=== PATIENT | female | born 1940 | race Caucasian/White ===

== ENCOUNTER 2016-06-05 00:13 | Inpatient (IN) ==
[2016-06-05] MEDS ORDERED: 0.9 % Sodium Chloride 1,000 ML IVC ONE (01:03)
[2016-06-05 01:30] LABS: Basophils % 0.1 %; Eosinophils % 0.1 %; Hematocrit 43.7 % (35.3-44.9); Hemoglobin 14.8 g/dL (11.5-15.4); Immature Granulocytes % 0.5 % (0-4); Lymphocytes # 0.9 K/mcL (0.6-4.6); Lymphocytes % 6.9 %; Mean Corpuscular HGB Conc 33.9 g/dL (31.6-35.5); Mean Corpuscular Hemoglobin 28.8 pg (28.0-33.3); Mean Corpuscular Volume 85.2 fL (83.0-100.0); Mean Platelet Volume 10.6 fL (9.4-12.4); Monocytes # 1.7 K/mcL (0.0-1.3); Monocytes % 13.7 %; Neutrophils # 9.9 K/mcL (1.6-8.9); Platelet Count 342 K/mcL (140-400); Red Blood Count 5.13 M/mcL (3.82-4.97); Red Cell Distribution Width 13.1 % (11.5-14.5); Segmented Neutrophils % 78.7 %
[2016-06-05 01:39] LABS: Prothrombin Time 11.3 Seconds (9.4-12.1)
[2016-06-05 01:42] LABS: Activated Partial Thrombo Time 30.9 Seconds (26.0-36.0)
--- NOTE | 2016-06-05 01:43 | Emergency Department Note ---
Disposition Clinical Impression: Elevated troponin, Abnormal EKG, Elevated serum creatinine, Confusion Leukocytosis Qualifiers: Leukocytosis type: unspecified Qualified Code(s): D72.829 - Elevated white blood cell count, unspecified Disposition: Admitted As Inpatient Condition: Fair Time of Disposition: 02:05 Altered Mental Status HPI - General Chief Complaint: ED Altered Mental Status Stated Complaint: AMS Time Seen by Provider: 06/05/16 00:46 Source: patient, family Mode of arrival: ambulatory Limitations: no limitations Nursing Notes Reviewed: Yes Vital Signs Reviewed: Yes - History of Present Illness HPI Narrative: Patient is a 76-year-old female with past medical history of CVA 2 years ago that has left her with some baseline weakness and confusion. She also has a history of hypertension. She lives alone by herself in [place]. Family went to visit her, according to the patient at that time, she told them that she had fallen out on her front yard, was out there for 3 days. However, when asked today on exam, the patient says that she does not remember being outside and that she has been in her house for the past 3 days. According to family members, a neighbor did find her outside and brought her into her house. They state that she has baseline confusion since stroke but say that her confusion is worsened from baseline. The patient herself denies any chest pain, shortness of breath, nausea, vomiting, fevers, abdominal pain, numbness, tingling, weakness. She is alert and oriented 2. Not oriented to time. Her last known well was approximately 3 days ago. - Related Data Allergies Allergy/AdvReac Type Severity Reaction Status Date / Time No Known Allergies Allergy Verified 06/05/16 00:24 All systems ED: reviewed and negative except as stated. Constitutional: Denies: fever Cardiovascular: Denies: chest pain, palpitations Respiratory: Denies: cough, dyspnea Gastrointestinal: Denies: abdominal pain, nausea, vomiting, diarrhea Genitourinary: Denies: urgency, dysuria, frequency Musculoskeletal: Denies: back pain, neck pain Integumentary: Denies: rash Neurological: Denies: headache, weakness, numbness, paresthesias Psychiatric: Denies: anxiety, depression Endocrine: Denies: fatigue Hematological/Lymphatic: Denies: easy bleeding Past Medical History - Past Medical History Attestation: Yes The following information was validated with the patient. Source: patient, other Medical history: Reports: CVA, hypertension Psychiatric history: Reports: anxiety, depression - Social History Smoking Status: Never smoker Alcohol use: Reports: occasionally Drug use: Reports: none Physical Exam - General Limitations: no limitations General appearance: alert, in no apparent distress, other (pleasantly confused) - Head Head exam: atraumatic, normocephalic, normal inspection - Eye Eye exam: Present: normal appearance, PERRL, EOMI - ENT ENT exam: normal exam, mucous membranes moist - Neck Neck exam: Present: normal inspection, full ROM, trachea midline. Absent: tenderness - Respiratory Respiratory exam: Present: normal lung sounds bilaterally - Cardiovascular Cardiovascular exam: Present: normal rhythm, tachycardia, normal heart sounds - Abdominal Exam Abdominal exam: Present: soft, Non-Tender. Absent: tenderness, distention, guarding, rebound, rigidity - Extremities Exam Extremities exam: Present: normal inspection, full ROM. Absent: tenderness, pedal edema - Neurological Exam Neurological exam: Present: alert, CN II-XII intact, other (See NIH section for full neuro exam. Bilateral LE weakness. No other focal neuro deficit). Absent : oriented X3 (oriented x2) - Psychiatric Psychiatric exam: Present: other (pleasantly confused) - Skin Skin exam: Present: warm, dry, intact, normal color Course Course Narrative: Patient tachycardic. EKG shows ST depression in anterolateral leads. No previous EKG for comparison. Altered mental status workup ordered including CT the head, basic labs, urinalysis. Normal saline was also ordered due to tachycardia. 02:02 Mild leukocytosis, elevated creatinine (fluids already started). Elevated trop - no current CP or dyspnea, aspirin 325 given. CXR shows no acute cardiopulm process. Head CT shows no acute intracranial process but does show old left basal ganglie lacunar infarct. UA and urine drug pending. 03:38 . Negative for UTI. We will admit with the above concerns. Chest X-Ray 06/05/16 00:30 IMPRESSION: 1. Right base subsegmental atelectasis. 2. Otherwise no acute consolidation. 3. Few scattered calcified lung granulomas. 4. Probable hiatal hernia. D/ / Lane Shook MD / Lane Shook MD Interpreting Provider: Lane Shook MD Head CT 06/05/16 00:54 IMPRESSION: 1. No acute intracranial findings. 2. Moderate to severe periventricular subcortical white matter low attenuation that likely represent sequela of chronic small vessel ischemic disease. 3. Old left basal ganglia lacunar infarct. D/ / Lane Shook MD / Lane Shook MD Interpreting Provider: Lane Shook MD Vital Signs Temperature 97.6 F 06/05/16 00:18 Pulse Rate 122 06/05/16 00:18 Respiratory Rate 20 06/05/16 00:18 Blood Pressure 117/70 06/05/16 00:18 O2 Sat by Pulse Oximetry 97 06/05/16 00:18 Temperature 97.6 F 06/05/16 00:18 Pulse Rate 105 06/05/16 04:30 Respiratory Rate 20 06/05/16 05:23 Blood Pressure 152/86 06/05/16 05:23 O2 Sat by Pulse Oximetry 98 06/05/16 04:30 Oxygen Delivery Oxygen Delivery Room Air Altered Mental Status - MDM Narrative Medical decision making narrative: Patient tachycardic. EKG shows ST depression in anterolateral leads. No previous EKG for comparison. Altered mental status workup ordered including CT the head, basic labs, urinalysis. Normal saline was also ordered due to tachycardia. 02:02 Mild leukocytosis, elevated creatinine (fluids already started). Elevated trop - no current CP or dyspnea, aspirin 325 given. CXR shows no acute cardiopulm process. Head CT shows no acute intracranial process but does show old left basal ganglie lacunar infarct. UA and urine drug pending. 03:38 . Negative for UTI. We will admit with the above concerns. - Medical Records Medical records reviewed: Yes I reviewed the patient's medical records. - Lab Data Lab results reviewed: Yes I reviewed the patient's lab results. Result diagrams: 06/05/16 01:19 06/05/16 01:19 Lab Results 06/05/16 06/05/16 06/05/16 Range/Units 00:20 01:19 01:19 WBC 12.6 H (4.3-11.1) K/mcL RBC 5.13 H (3.82-4.97) M/mcL Hgb 14.8 (11.5-15.4) g/dL Hct 43.7 (35.3-44.9) % MCV 85.2 (83.0-100.0) fL MCH 28.8 (28.0-33.3) pg MCHC 33.9 (31.6-35.5) g/dL RDW 13.1 (11.5-14.5) % Plt Count 342 (140-400) K/mcL MPV 10.6 (9.4-12.4) fL Immature Gran % 0.5 (0-4) % Seg Neutrophils % 78.7 % Lymphocytes % 6.9 % Monocytes % 13.7 % Eosinophils % 0.1 % Basophils % 0.1 % Neutrophils # 9.9 H (1.6-8.9) K/mcL Lymphocytes # 0.9 (0.6-4.6) K/mcL Monocytes # 1.7 H (0.0-1.3) K/mcL Eosinophils # 0.0 (0.0-0.6) K/mcL Basophils # 0.0 (0.0-0.2) K/mcL PT 11.3 (9.4-12.1) Seconds INR 1.0 APTT 30.9 (26.0-36.0) Seconds Sodium (136-145) mEq/L Potassium (3.5-4.5) mEq/L Chloride (98-109) mEq/L Carbon Dioxide (19-29) mEq/L BUN (7-20) mg/dL Creatinine (0.57-1.11) mg/dL Est GFR ( Amer) (> 60) Est GFR (Non-Af Amer) (> 60) BUN/Creatinine Ratio (6-26) Glucose (70-99) mg/dL POC Glucose 140 H (58-89) Calculated Osmolality (280-300) Lactic Acid (0.5-2.2) mmol/L Calcium (8.6-10.8) mg/dL Total Bilirubin (0.2-1.2) mg/dL Direct Bilirubin (0.0-0.5) mg/dL Indirect Bilirubin (0.0-1.2) mg/dL AST (5-34) Units/L ALT (0-55) Units/L Alkaline Phosphatase (38-126) Units/L Troponin I (0-0.03) ng/mL Serum Total Protein (6.0-8.3) g/dL Albumin (3.5-5.0) g/dL Globulin (2.4-3.5) g/dL Albumin/Globulin Ratio (1.1-2.2) Urine Color (Yellow) Urine Clarity (Clear) Urine pH (5.0-8.0) pH Units Ur Specific [place] (1.010-1.025) Urine Protein (Neg-Trace) mg/dL Urine Glucose (UA) (Normal) mg/dL Urine Ketones (Negative) mg/dL Urine Blood (Negative) Urine Nitrite (Negative) Urine Bilirubin (Negative) Urine Urobilinogen (Normal) mg/dL Ur Leukocyte Esterase (Negative) Urine Microscopic RBC (0-3) per hpf Urine Microscopic WBC (0-3) per hpf Ur Squamous Epith Cells (None-Few) per lpf Ur Transition Epith Cell (None-Few) per hpf Urine Bacteria (None-Few) per hpf Hyaline Casts (None-Few) per lpf Urine Mucus (Few) Ur Culture Indicated? (NO) Salicylates (15-30) mg/dL Urine Opiates Screen (Medutz=143) ng/mL Acetaminophen (10-30) mcg/mL Ur Barbiturates Screen (Hqlyuj=866) ng/mL Ur Phencyclidine Scrn (Cutoff=25) ng/mL Ur Amphetamines Screen (Kqfjzu=7154) ng/mL U Benzodiazepines Scrn (Uptget=762) ng/mL Urine Cocaine Screen (Cutoff= 300) ng/mL U Marijuana (THC) Screen (Cutoff = 50) ng/mL Ethyl Alcohol (0-10) mg/dL 06/05/16 06/05/16 06/05/16 Range/Units 01:19 01:19 01:19 WBC (4.3-11.1) K/mcL RBC (3.82-4.97) M/mcL Hgb (11.5-15.4) g/dL Hct (35.3-44.9) % MCV (83.0-100.0) fL MCH (28.0-33.3) pg MCHC (31.6-35.5) g/dL RDW (11.5-14.5) % Plt Count (140-400) K/mcL MPV (9.4-12.4) fL Immature Gran % (0-4) % Seg Neutrophils % % Lymphocytes % % Monocytes % % Eosinophils % % Basophils % % Neutrophils # (1.6-8.9) K/mcL Lymphocytes # (0.6-4.6) K/mcL Monocytes # (0.0-1.3) K/mcL Eosinophils # (0.0-0.6) K/mcL Basophils # (0.0-0.2) K/mcL PT (9.4-12.1) Seconds INR APTT (26.0-36.0) Seconds Sodium 140 (136-145) mEq/L Potassium 3.3 L (3.5-4.5) mEq/L Chloride 107 (98-109) mEq/L Carbon Dioxide 19 (19-29) mEq/L BUN 29 H (7-20) mg/dL Creatinine 1.56 H (0.57-1.11) mg/dL Est GFR ( Amer) 39 L (> 60) Est GFR (Non-Af Amer) 32 L (> 60) BUN/Creatinine Ratio 19 (6-26) Glucose 132 H (70-99) mg/dL POC Glucose (58-89) Calculated Osmolality 298 (280-300) Lactic Acid 1.0 (0.5-2.2) mmol/L Calcium 10.2 (8.6-10.8) mg/dL Total Bilirubin 1.2 (0.2-1.2) mg/dL Direct Bilirubin 0.5 (0.0-0.5) mg/dL Indirect Bilirubin 0.7 (0.0-1.2) mg/dL AST 28 (5-34) Units/L ALT 21 (0-55) Units/L Alkaline Phosphatase 66 (38-126) Units/L Troponin I 0.06 H* (0-0.03) ng/mL Serum Total Protein 7.5 (6.0-8.3) g/dL Albumin 4.0 (3.5-5.0) g/dL Globulin 3.5 (2.4-3.5) g/dL Albumin/Globulin Ratio 1.1 (1.1-2.2) Urine Color (Yellow) Urine Clarity (Clear) Urine pH (5.0-8.0) pH Units Ur Specific [place] (1.010-1.025) Urine Protein (Neg-Trace) mg/dL Urine Glucose (UA) (Normal) mg/dL Urine Ketones (Negative) mg/dL Urine Blood (Negative) Urine Nitrite (Negative) Urine Bilirubin (Negative) Urine Urobilinogen (Normal) mg/dL Ur Leukocyte Esterase (Negative) Urine Microscopic RBC (0-3) per hpf Urine Microscopic WBC (0-3) per hpf Ur Squamous Epith Cells (None-Few) per lpf Ur Transition Epith Cell (None-Few) per hpf Urine Bacteria (None-Few) per hpf Hyaline Casts (None-Few) per lpf Urine Mucus (Few) Ur Culture Indicated? (NO) Salicylates (15-30) mg/dL Urine Opiates Screen (Zhxeze=044) ng/mL Acetaminophen (10-30) mcg/mL Ur Barbiturates Screen (Mxfgxf=600) ng/mL Ur Phencyclidine Scrn (Cutoff=25) ng/mL Ur Amphetamines Screen (Bfvbby=7850) ng/mL U Benzodiazepines Scrn (Xdbeck=774) ng/mL Urine Cocaine Screen (Cutoff= 300) ng/mL U Marijuana (THC) Screen (Cutoff = 50) ng/mL Ethyl Alcohol (0-10) mg/dL 06/05/16 06/05/16 06/05/16 Range/Units 01:19 02:36 02:36 WBC (4.3-11.1) K/mcL RBC (3.82-4.97) M/mcL Hgb (11.5-15.4) g/dL Hct (35.3-44.9) % MCV (83.0-100.0) fL MCH (28.0-33.3) pg MCHC (31.6-35.5) g/dL RDW (11.5-14.5) % Plt Count (140-400) K/mcL MPV (9.4-12.4) fL Immature Gran % (0-4) % Seg Neutrophils % % Lymphocytes % % Monocytes % % Eosinophils % % Basophils % % Neutrophils # (1.6-8.9) K/mcL Lymphocytes # (0.6-4.6) K/mcL Monocytes # (0.0-1.3) K/mcL Eosinophils # (0.0-0.6) K/mcL Basophils # (0.0-0.2) K/mcL PT (9.4-12.1) Seconds INR APTT (26.0-36.0) Seconds Sodium (136-145) mEq/L Potassium (3.5-4.5) mEq/L Chloride (98-109) mEq/L Carbon Dioxide (19-29) mEq/L BUN (7-20) mg/dL Creatinine (0.57-1.11) mg/dL Est GFR ( Amer) (> 60) Est GFR (Non-Af Amer) (> 60) BUN/Creatinine Ratio (6-26) Glucose (70-99) mg/dL POC Glucose (58-89) Calculated Osmolality (280-300) Lactic Acid (0.5-2.2) mmol/L Calcium (8.6-10.8) mg/dL Total Bilirubin (0.2-1.2) mg/dL Direct Bilirubin (0.0-0.5) mg/dL Indirect Bilirubin (0.0-1.2) mg/dL AST (5-34) Units/L ALT (0-55) Units/L Alkaline Phosphatase (38-126) Units/L Troponin I (0-0.03) ng/mL Serum Total Protein (6.0-8.3) g/dL Albumin (3.5-5.0) g/dL Globulin (2.4-3.5) g/dL Albumin/Globulin Ratio (1.1-2.2) Urine Color Yellow (Yellow) Urine Clarity Clear (Clear) Urine pH 6.0 (5.0-8.0) pH Units Ur Specific [place] 1.024 (1.010-1.025) Urine Protein 30 H (Neg-Trace) mg/dL Urine Glucose (UA) Normal (Normal) mg/dL Urine Ketones 80 H (Negative) mg/dL Urine Blood Negative (Negative) Urine Nitrite Negative (Negative) Urine Bilirubin Moderate H (Negative) Urine Urobilinogen Normal (Normal) mg/dL Ur Leukocyte Esterase Negative (Negative) Urine Microscopic RBC 3-5 H (0-3) per hpf Urine Microscopic WBC 0-3 (0-3) per hpf Ur Squamous Epith Cells Many H (None-Few) per lpf Ur Transition Epith Cell Few (None-Few) per hpf Urine Bacteria Few (None-Few) per hpf Hyaline Casts Moderate H (None-Few) per lpf Urine Mucus Few (Few) Ur Culture Indicated? NO (NO) Salicylates < 5.0 L (15-30) mg/dL Urine Opiates Screen Negative (Fdqayg=074) ng/mL Acetaminophen < 1.0 L (10-30) mcg/mL Ur Barbiturates Screen Negative (Vticmz=854) ng/mL Ur Phencyclidine Scrn Negative (Cutoff=25) ng/mL Ur Amphetamines Screen Negative (Szrzly=6193) ng/mL U Benzodiazepines Scrn Negative (Jghmox=374) ng/mL Urine Cocaine Screen Negative (Cutoff= 300) ng/mL U Marijuana (THC) Screen Negative (Cutoff = 50) ng/mL Ethyl Alcohol < 10 (0-10) mg/dL - Radiology Data Radiology results reviewed: Yes I reviewed the patient's radiology results. Chest X-Ray 06/05/16 00:30 IMPRESSION: 1. Right base subsegmental atelectasis. 2. Otherwise no acute consolidation. 3. Few scattered calcified lung granulomas. 4. Probable hiatal hernia. D/ / Lane Shook MD / Lane Shook MD Interpreting Provider: Lane Shook MD Head CT 06/05/16 00:54 IMPRESSION: 1. No acute intracranial findings. 2. Moderate to severe periventricular subcortical white matter low attenuation that likely represent sequela of chronic small vessel ischemic disease. 3. Old left basal ganglia lacunar infarct. D/ / Lane Shook MD / Lane Shook MD Interpreting Provider: Lane Shook MD - EKG Data EKG attestation: Yes I reviewed and interpreted this EKG. EKG results narrative: 06/05/2016 at 00:28. Sinus tachycardia. Rate 122. GA interval 147. QRS 92. QTc 367. ST depression of V2, V3, V4. No previous EKG for comparison. TPA Checklist - LKW: 3-4.5 hrs Add. Contraindications Patient/family understanding: The patient/family members have been counseled and understood the risk, benefit , and alternatives of treatment. S.B.AJackR. - S.B.A.[place]zbi[place] Situation: Demographics, MOA Background: Presenting Complaint, Relevant PMH, Meds, & Allergies Assessment: Vital Signs, Course and respsone to treatment, Exam Concerns, Patient/Family Expectation, Pertinant Lab Results, Outstanding Labs Recommendation: Barrier(s) to disposition, Recommendation based on pending studies, treatments, or consults S.B.A.R. Report Given to: Dr. Tabor Attestation Statement - Attestation Attestation: I personally interviewed and examined this patient and my medical decision- making was reviewed with the ED Resident Physician, Dr. Cleveland. I agree with the documented findings, disposition and treatment plan as described except to the extent set forth below. Patient is a 76-year-old white female who is brought here by family members with concerns for worsening confusion and possible fall. Patient suffered a CVA 2 years ago and family reports since that time she has had mild confusion and reportedly went to visit her today in [place] and found her outside, family comments she been outside for an unknown period of time. The clinic found her she reported that she had been out there for 3 days although this is unsubstantiated by anyone else. Family brought her here for medical evaluation. Patient with no complaints on arrival denies any chest pain pressure or heaviness, no shortness of breath, no abdominal pain or flank pain, no nausea vomiting or bowel changes, and no urinary symptoms. Patient with no appreciable focal deficits on examination, speech is clear, patient denies any headaches visual changes, no dizziness or vertigo, no focal weakness or numbness. Agree with documented exam findings. EKG does show some ST depression in the anterolateral leads, unclear if this is new or old as we have no old EKG for comparison. Patient's evaluation shows a mild elevation in her BUN/creatinine, again unclear with no baseline information on the patient whether this is new or chronic. Patient also with elevated troponin. Over serial evaluations patient denies any chest pain pressure or heaviness. CT head was within normal limits. Will admit patient for further evaluation of abnormal EKG and elevated troponin, mild confusion and acute renal insufficiency. Patient has remained hemodynamically stable while in the emergency department and serial neuro exams remain unchanged over time. NIH Stroke Scale - Level of Consciousness LOC: Alert - LOC Questions LOC Questions: Answers one correctly - LOC Commands LOC Commands: Performs both correctly - Best Gaze Best Gaze: Normal - Visual Visual: No visual loss - Facial Palsy Facial Palsy: Normal - Motor Arms Motor Arm-Left: No drift for 10 seconds Motor Arm-Right: No drift for 10 seconds - Motor Legs Motor Leg-Left: Drift, does NOT hit bed Motor Leg-Right: Drift, does NOT hit bed - Limb Ataxia Limb Ataxia: Absent of affected limb too weak to perform exam - Sensory Sensory: Normal - Best Language Best Language: No aphasia - Dysarthria Dysarthria: Normal - Extinction and Inattention Extinction and Inattention: Normal - NIHSS Total Score NIHSS Total Score: 3
[2016-06-05 01:44] LABS: Albumin/Globulin Ratio 1.1 (1.1-2.2); Bilirubin,Direct 0.5 mg/dL (0.0-0.5); Bilirubin,Indirect 0.7 mg/dL (0.0-1.2); Bilirubin,Total 1.2 mg/dL (0.2-1.2); Calcium 10.2 mg/dL (8.6-10.8); Globulin 3.5 g/dL (2.4-3.5); Potassium 3.3 mEq/L (3.5-4.5); Total Protein 7.5 g/dL (6.0-8.3)
[2016-06-05 01:50] LABS: Acetaminophen < 1.0 mcg/mL (10-30); Ethanol < 10 mg/dL (0-10); Salicylate < 5.0 mg/dL (15-30)
[2016-06-05] MEDS ORDERED: Aspirin 325 MG TABLET PO ONE (02:00)
[2016-06-05 03:04] LABS: Bilirubin,Urine Moderate (Negative); Blood,Urine Negative (Negative); Clarity,Urine Clear (Clear); Color,Urine Yellow (Yellow); Glucose,Urine (UA) Normal (Normal); Ketones,Urine 80 mg/dL (Negative); Leukocyte Esterase,Urine Negative (Negative); Nitrite,Urine Negative (Negative); Protein,Urine 30 mg/dL (Neg-Trace); Specific Gravity,Urine 1.024 (1.010-1.025); Urobilinogen,Urine Normal (Normal)
[2016-06-05 03:07] LABS: Squamous Epithelial Cell,Urine Many per lpf (None-Few); WBC,Urine 0-3 per hpf (0-3)
[2016-06-05 03:08] LABS: Amphetamine Screen,Urine Negative ng/mL (Cutoff=1000); Barbiturate Screen,Urine Negative ng/mL (Cutoff=200); Benzodiazepines Screen,Urine Negative ng/mL (Cutoff=200); Cannabinoid Screen,Urine Negative ng/mL (Cutoff = 50); Cocaine Screen,Urine Negative ng/mL (Cutoff= 300); Opiate Screen,Urine Negative ng/mL (Cutoff=300); Phencyclidine Screen,Urine Negative ng/mL (Cutoff=25)
[2016-06-05 03:20] LABS: Hyaline Casts,Urine Moderate per lpf (None-Few); Mucus,Urine Few (Few); Transitional Epi Cells,Urine Few per hpf (None-Few)
[2016-06-05 03:21] LABS: Bacteria,Urine Few per hpf (None-Few)
--- NOTE | 2016-06-05 05:01 | Internal Med History&Physical ---
<Umm Jolley - Last Filed: 06/05/16 06:34> Date of Encounter: 06/05/16 Time of Encounter: 04:30 Assessment and Plan (1) Acute encephalopathy Current visit: Yes Status: Acute - Likely secondary to dehydration and/or electrolyte imbalance in the setting of baseline residual confusion from prior stroke. - CT head found no acute intracranial abnormality. - UA and UDS are unremarkable. - Continue IV NS - Continue to monitor mental status along with renal function and electrolytes. (2) Elevated troponin Current visit: Yes Status: Acute - Elevated troponin at 0.06. - NSTEMI vs. troponin leakage which can be from tachycardia from dehydration in the setting of JAYA or CKD. - Continue to trend troponin q6H x2. - May consider cardiology consult if it continues to elevate. - Will check lipid panel, Hgb A1C, TSH. - Continue aspirin and start statin and beta carlene. (3) Abnormal EKG Current visit: Yes Status: Acute - EKG showed ST depression noted on anterolateral leads. - New ischemia vs. old EKG findings (given we don't have prior EKG). - Will obtain prior EKG from [facility]. - Continue to monitor with telemetry. (4) Elevated serum creatinine Current visit: Yes Status: Acute - SCr 1.56. - Can be JAYA secondary to dehydration or CKD (since we don't have baseline). - Will obtain medical records from [facility] regarding her renal function in the past. - Continue IV NS. - Avoid nephrotoxin. - Continue to monitor renal function and electrolytes. (5) Leukocytosis Current visit: Yes Status: Acute - WBC 12.6 on admission. - Likely stress response to current illness. Doubt underlying infection given negative UA and CXR. - Continue to monitor. Qualifiers: Leukocytosis type: unspecified Qualified Code(s): D72.829 - Elevated white blood cell count, unspecified (6) Hypokalemia Current visit: Yes Status: Acute - K at 3.3 - Will check Mg. - Will give potassium supplement (20 meq IV, 20 meq PO). - continue to monitor. (7) DVT prophylaxis Current visit: Yes Status: Acute - SQ heparin. Internal Medicine - H&P: HPI Chief complaint: Altered mental status Admitted From: Emergency Dept Plans for Post Hospital Care: Home History of present illness: Ms. 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 Patient was brought here by her family for worsening altered mental status. On the encounter, patient is hypersomnolent and oriented to self and part of place ("hospital") but not a good historian. Given no family member at bedside on my encounter, much of history was obtained from reviewing medical records, mainly the ED noted. Per ED note, patient lives alone by herself in [place]. When family visit her earlier, patient at that time reported she had fallen out on her front yard , was out there for 3 days. According to family members, a neighbor did find her outside and brought her into her house but didn't know how long she was outside. Family reported that patient has altered mental status worsen than her baseline confusion since the stroke. Patient herself denies chest pain, abdominal pain, dyspnea, fever, chills, nausea, vomiting, diarrhea. I called patient's son James Arora and he does not know exactly what happened in [place]. But he states that patient's baseline is orient to person, place and part of time (mostly month) and patient's confusion today is definitely worse than before. Patient's son also recalled that patient had been hospitalized at [facility] in [facility] in the past. Past Med Surg Social Fam HX - Past Medical History Medical history: CVA, hypertension Psychiatric history: anxiety, depression - Social History Smoking Status: Never smoker Alcohol use: occasionally Drug use: none Internal Medicine - H&P: Meds Allergies No Known Allergies Allergy (Verified 06/05/16 00:24) ROS unobtainable: due to mental status All Systems PM: A 10-system review of systems was performed and is negative for pertinent findings except as documented above in the HPI. - Constitutional Vitals: Temp Pulse Resp BP Pulse Ox 97.6 F 105 20 134/83 98 06/05/16 00:18 06/05/16 04:30 06/05/16 04:30 06/05/16 04:30 06/05/16 04:30 General appearance: Present: A&O X 2 (Milam to her name and part of place ( "hospital")), no acute distress. Absent: answers questions appropriately - Head Head exam: Present: atraumatic, normocephalic - Eye Eye exam: Present: EOMI, conjuntiva pink, sclera anicteric - Neck Neck exam general surgery: Present: supple, trachea midline. Absent: lymphadenopathy - Respiratory Respiratory exam: Present: CTAB. Absent: accessory muscle use, rales, rhonchi, wheezes - Cardiovascular Cardiovascular exam: Present: +S1, +S2, tachycardia. Absent: diastolic murmur, gallop, rubs, systolic murmur - GI/Abdominal GI/Abdominal exam: Present: normal bowel sounds, soft, no peritoneal signs. Absent: distended, tenderness - Extremities Exam Extremities exam: Present: warm, radial pulses palpable and symetrical. Absent : calf tenderness, cyanotic, pedal edema - Neurological Exam Neurological exam: Absent: pronater drift, facial droop, speech deficit Additional comments: Unable to fully assess given patient is not following commands nor answering questions appropriately. - Skin Skin exam: Present: dry, intact, warm Internal Med - H&P Results - Labs CBC & Chem 7: 06/05/16 01:19 06/05/16 01:19 <Manolo Tabor - Last Filed: 06/05/16 08:25> Date of Encounter: 06/05/16 Internal Medicine - H&P: HPI History of present illness: Ms. Arora is a 76 year old female All Systems PM: A 10-system review of systems was performed and is negative for pertinent findings except as documented above in the HPI. - Constitutional Vitals: Temp Pulse Resp BP Pulse Ox 98.3 F 93 18 148/84 94 06/05/16 07:34 06/05/16 07:34 06/05/16 07:34 06/05/16 07:34 06/05/16 07:34 Internal Med - H&P Results - Labs CBC & Chem 7: 06/05/16 01:19 06/05/16 01:19 Labs: Cardiac Enzymes 06/05/16 Range/Units 06:31 Troponin I 0.05 H* (0-0.03) ng/mL - Attending Attestation I performed history and physical examination of the patient and discussed management with resident/Cop[employer] Printer Field Technician. I reviewed the resident/ Interns note and agree with the documented findings and plan of care. 76 year old female with h/o HTN and CVA 2 years ago with residual weakness and confusion. Patient was brought here by her family for worsening altered mental status. Not able to review Past medical, social or family history with the pt. O /E: Confused. Cardiac; RRR. Able to move the extremities. CT head reports no acute intracranial abnormalities. Chest x-ray shows no consolidation. Labs reviewed: WBC 12.6, serum sodium 140, potassium 4.3, creatinine 1.56 and troponin 0.06. CK: 258. A/P: Acute encephalopathy: No obvious source of infection sofar. Will check TSH. Consider Neurology consult. Mild elevation of troponin consider cardiology consult.
[2016-06-05] MEDS ORDERED: Acetaminophen 325 MG TABLET PO PRN (05:02)
[2016-06-05 06:27] LABS: Chol/HDL Ratio 6.2 (0-4.9); Cholesterol 268 mg/dL (< 200); Creatine Kinase 258 Units/L (29-168); HDL Cholesterol 43 mg/dL (40-59); LDL Cholesterol,Calculated 195 mg/dL (0-99); Magnesium 1.8 mg/dL (1.6-2.6); Phosphorous 3.4 mg/dL (2.3-4.7); Triglycerides 149 mg/dL (< 150)
[2016-06-05 06:47] LABS: Thyroid Stimulating Hormone 2.157 mcIU/mL (0.350-4.840)
[2016-06-05] MEDS: 0.9 % Sodium Chloride 1,000 ML IVC SCH ×2 (07:26→15:29)
[2016-06-05] MEDS: *HR* Heparin 5,000 UNIT/ML VIAL SQ SCH ×3 (07:28→20:44)
[2016-06-05] MEDS: Aspirin 81 MG TAB.CHEW PO SCH (08:31)
--- NOTE | 2016-06-05 08:45 | Neurology - Consult Note ---
Date of Encounter: 06/05/16 Time of Encounter: 08:45 Assessment and Plan (1) Change in mental status Current Visit: Yes Status: Acute spoke to patient's son over the phone, he states that her current mental status is somewhat worse than her usual, she does have possible baseline dementia and it has been worse since her last stroke two yrs ago, currently she does not have focal neurological deficit to suggest acute CVA, but she does have hx of stroke and not on any home meds at this time, CT scan of the head without contrast showed moderate to severe periventricular subcortical white matter low attenuation which likely represent sequela of chronic small vessel ischemic disease and old left basal ganglia lacunar infarct, lab and UA shows dehydration picture, clinically does not look infectious, currently she is on IV hydration, her change in mental status could be coming from dehydration, currently she is on ASA and statin, if no improvement in her mental status after fluid hydration, then might obtain brain MRI but acute cva is low in differential diagnosis. Qualifiers: Qualified Code(s): R41.82 - Altered mental status, unspecified History of Present Illness Chief complaint: Change in mental status HPI: Ms. Arora is a 76 year old female with a history of hypertension and stroke, patient was brought from [facility] to the ER by her son last night for change in mental status, patient has a baseline confusion from previous stroke 2 years ago, she is supposed to be on home medications but she does not take anything currently, patient stays at [facility] with her boyfriend and occasionally with her son in [place], apparently there was no one at the house for several days and the neighbor found her laying in the yard, her patient's family member was notified and her son brought from her to the ER, patient is a poor historian, A and O 2, not oriented to time, patient states that she was laying in the yard for at least two days, she was not able to get up by herself due to weakness of her legs, patient denies loss of consciousness or hitting her head, unclear how she fell, possible mechanical, CT scan of the head without contrast showed moderate to severe periventricular subcortical white matter low attenuation which likely represent sequela of chronic small vessel ischemic disease and old left basal ganglia llacunar infarct, patient denies slurred speech and weakness/tingling/numbness of upper extremities, patient does admit chronic lower extremity weakness and she uses a cane daily but denies tingling/numbness of lower extremities or urinary/bowel incontinence. Past Med Surg Social Fam HX - Past Medical History Medical history: CVA, hypertension Psychiatric history: anxiety, depression - Past Surgical History Surgical History: other (unknown) - Social History Smoking Status: Never smoker Alcohol use: occasionally Drug use: none - Family History Mother History Unknown: Yes Father History Unknown: Yes Medications and Allergies Allergies No Known Allergies Allergy (Verified 06/05/16 00:24) ROS unobtainable: due to mental status (limited) All Systems: A 10-system review of systems was performed and is negative for pertinent findings except as documented above in the HPI. Review of Systems: Patient denies headache, fever/chill, neck pain, facial droop, slurred speech and weakness/tingling/numbness of upper extremities, patient does admit chronic lower extremity weakness and she uses a cane daily but denies tingling/numbness of lower extremities or urinary/bowel incontinence. Physical Examination - Vital Signs Vital Signs: Initial Vital Signs Temp Pulse Resp BP Pulse Ox 97.6 F 122 20 117/70 97 06/05/16 00:18 06/05/16 00:18 06/05/16 00:18 06/05/16 00:18 06/05/16 00:18 - Constitutional General appearance: comfortable - Neurologic Sensorimotor examination: intact Detailed motor examination: grossly full strength in all extremities, full strength in all major muscle groups Motor examination - right side: 5/5: deltoids, biceps, triceps, wrist flexion, wrist extension, bitumen plant operator, hip flexors, quadriceps, plantarflexion Motor examination - left side: 5/5: deltoids, biceps, triceps, wrist flexion, wrist extension, hip flexors, bitumen plant operator, quadriceps, plantarflexion Detailed sensory examination: intact Reflex and gait examination: intact Reflexes: Biceps: 2+, Triceps: 2+, Brachioradialis: 2+, Patella: 2+, Achilles: 2 + Mental Status Examination: awake, alert, oriented to person, oriented to place, follows commands appropriately, answers questions appropriately, no agnosia, no aphasia, no aproxia Cranial nerve examination: PERRL, EOMI, visual cuevas intact, sensory to face intact, mastication intact, no facial asymmetry is present, no dysarthria, hearing is intact symmetrically, soft palate elevates bilaterally upon phonation , tongue protrudes midline, no atrophy or facial fasiculations present Cerebellar examination: no dysmetria, performs finger to nose and heel to romano symmetrically without ataxia, no truncal ataxia, no difficulty with rapid alternating movements Results - Laboratory Findings CBC and BMP: 06/05/16 01:19 06/05/16 01:19 Abnormal lab findings: Abnormal lab results WBC 12.6 K/mcL (4.3-11.1) H 06/05/16 01:19 RBC 5.13 M/mcL (3.82-4.97) H 06/05/16 01:19 Neutrophils # 9.9 K/mcL (1.6-8.9) H 06/05/16 01:19 Monocytes # 1.7 K/mcL (0.0-1.3) H 06/05/16 01:19 Potassium 3.3 mEq/L (3.5-4.5) L 06/05/16 01:19 BUN 29 mg/dL (7-20) H 06/05/16 01:19 Creatinine 1.56 mg/dL (0.57-1.11) H 06/05/16 01:19 Est GFR ( Amer) 39 (> 60) L 06/05/16 01:19 Est GFR (Non-Af Amer) 32 (> 60) L 06/05/16 01:19 Glucose 132 mg/dL (70-99) H 06/05/16 01:19 POC Glucose 140 (58-89) H 06/05/16 00:20 Creatine Kinase 258 Units/L (29-168) H 06/05/16 01:19 Troponin I 0.05 ng/mL (0-0.03) H* 06/05/16 06:31 Cholesterol 268 mg/dL (< 200) H 06/05/16 01:19 LDL Cholesterol, Calc 195 mg/dL (0-99) H 06/05/16 01:19 Cholesterol/HDL Ratio 6.2 (0-4.9) H 06/05/16 01:19 Urine Protein 30 mg/dL (Neg-Trace) H 06/05/16 02:36 Urine Ketones 80 mg/dL (Negative) H 06/05/16 02:36 Urine Bilirubin Moderate (Negative) H 06/05/16 02:36 Urine Microscopic RBC 3-5 per hpf (0-3) H 06/05/16 02:36 Ur Squamous Epith Cells Many per lpf (None-Few) H 06/05/16 02:36 Hyaline Casts Moderate per lpf (None-Few) H 06/05/16 02:36 Salicylates < 5.0 mg/dL (15-30) L 06/05/16 01:19 Acetaminophen < 1.0 mcg/mL (10-30) L 06/05/16 01:19 Consult Discharge Plan - Plan Referrals: NO,PCP [Primary Care Provider] -
--- NOTE | 2016-06-05 10:15 | Internal Med Progress Note ---
Date of Encounter: 06/05/16 Time of Encounter: 10:11 - Assessment and plan (1) Acute encephalopathy Current Visit: Yes Status: Acute Assessment and plan: Acute encephalopathy on top dementia Per family, patient is not at baseline CT scan of the head without contrast showed moderate to severe periventricular subcortical white matter low attenuation which likely represent sequela of chronic small vessel ischemic disease and old left basal ganglia lacunar infarct Work up revealed ketonuria, proteinuria, possible JAYA and leukocytosis evidence of dehydration Patient's AMS may possibly be from her metabolic abnormalities Continue IVF hydration Agree with neurology consultation and Brain MRI Fall risk, fall precautions Close monitoring (2) Dehydration Current Visit: Yes Status: Acute Assessment and plan: Continue IVF hydration Obtain renal USS to assess for chronicity Phosphate is WNL , patient's urine is concentrated and with ketones, most likely patient has JAYA due to dehydration and wandering with poor oral intake Check uric acid Avoid nephrotoxins (3) Renal insufficiency Current Visit: Yes Status: Acute Assessment and plan: As above Follow renal USS, monitor Chem, avoid nephrotoxins (4) Elevated troponin Current Visit: Yes Status: Acute Assessment and plan: Patient denies chest pain, however, she is confused and oriented X2 only EKG with ST depression in anterolateral leads, LVH and sinus tachycardia Troponin 0.06-0.05, possibly due to JAYA and demand ischemia from tachycardia Will keep patient on tele Continue metoprolol, give IV if patient is refusing oral meds Obtain ECHO to assess WMA (5) Leukocytosis Current Visit: Yes Status: Acute Assessment and plan: Possibly from dehydration and acute illness NO current source of infection, patient has no wounds, UA is unremarkable, patient has no fever, CXR is clear, will continue to monitor Qualifiers: Leukocytosis type: unspecified Qualified Code(s): D72.829 - Elevated white blood cell count, unspecified (6) Hypokalemia Current Visit: Yes Status: Acute Assessment and plan: Replaced, monitor (7) Abnormal EKG Current Visit: Yes Status: Acute Assessment and plan: Obtain previous EKGs Keep on tele - Subjective Interval history: Initial encounter 76 Y/O F with PMH of HTN, CVA Admitted for acute encephalopathy, JAYA, Leukocytosis Per EMR, she was found wandering and brought in by family She remains confused at time of evaluation She reports to me "I was in the graveyard for 3 days, she also [place], she also reports she lives with her son". all of this information when verified by RN is not true She denies any current complains, and states she has no medical problems, however, EMR revealed a history of CVA, as well as vascular dementia There is no family at bedside at time of review - Constitutional Vitals: Temp Pulse Resp BP Pulse Ox 98.3 F 93 18 148/84 94 06/05/16 07:34 06/05/16 07:34 06/05/16 07:34 06/05/16 07:34 06/05/16 07:34 General appearance: Present: no acute distress. Absent: answers questions appropriately Exam: VSS Gen appearance: looks disheveled, unkempt, reeking of urine pleasantly confused Neuro: Alert, awake, disoriented to time, oriented to place and person, no speech deficits, moves all limbs spontaneously, no facial paralysis HEENT: Dry oral mucosa, no cyanosis, not pale, sclera anicteric Chest: No scar, Chest is clear to auscultation bilaterally Heart: S1, S2 only, no m/g/r Abdomen: Soft, not tender, bowel sounds are present, no palpably enlarged organs Extremities: No pedal edema, lots of dirt inbetween fingers and toes, no ulcers/ wounds noted Skin: Dry Internal Medicine: Result - Labs CBC & Chem 7: 06/05/16 01:19 06/05/16 01:19 Labs: Cardiac Enzymes 06/05/16 Range/Units 06:31 Troponin I 0.05 H* (0-0.03) ng/mL - ABG Interpretation ABG results: PT/INR, D-dimer PT 11.3 Seconds (9.4-12.1) 06/05/16 01:19 Consult Discharge Plan - Plan Referrals: NO,PCP [Primary Care Provider] -
[2016-06-05] MEDS ORDERED: *HR* Metoprolol 5 MG/5 ML VIAL IVP PRN (12:22)
--- NOTE | 2016-06-05 12:27 | Electrocardiograph Report ---
[place] [id number] Test Date: 2016-06-05 Pat Name: Anna Arora Department: 102 Room: 2A12 Gender: F Medical Device Engineer: : [id number] Requested By: Lea Guzmán Order Number: [id number] Reading MD: Theodore Hodges MD Measurements Intervals Cornish Rate: 122 P: 49 MD: 147 QRS: -3 QRSD: 92 T: 153 QT: 294 QTc: 367 Interpretive Statements SINUS TACHYCARDIA LEFT VENTRICULAR HYPERTROPHY AND ST-T CHANGE Electronically Signed On 06-05-2016 12:25:40 EDT by Theodore Hodges MD
[2016-06-06 04:46] LABS: Basophils % 0.5 %; Eosinophils # 0.1 K/mcL (0.0-0.6); Eosinophils % 2.2 %; Hematocrit 31.2 % (35.3-44.9); Immature Granulocytes % 0.2 % (0-4); Lymphocytes # 2.6 K/mcL (0.6-4.6); Lymphocytes % 40.9 %; Mean Corpuscular Hemoglobin 28.9 pg (28.0-33.3); Mean Corpuscular Volume 87.4 fL (83.0-100.0); Monocytes # 0.7 K/mcL (0.0-1.3); Monocytes % 11.3 %; Neutrophils # 2.9 K/mcL (1.6-8.9); Platelet Count 229 K/mcL (140-400); Red Blood Count 3.57 M/mcL (3.82-4.97); Red Cell Distribution Width 13.3 % (11.5-14.5); Segmented Neutrophils % 44.9 %
[2016-06-06 04:59] LABS: BUN/Creatinine Ratio 45 (6-26); Blood Urea Nitrogen 30 mg/dL (7-20); Carbon Dioxide 24 mEq/L (19-29); Chloride 113 mEq/L (98-109); Glucose 104 mg/dL (70-99); Osmolality,Calculated 296 (280-300); Potassium 3.1 mEq/L (3.5-4.5); Sodium 140 mEq/L (136-145); eGFR For African Americans > 60 (> 60); eGFR For Non-African Americans > 60 (> 60)
[2016-06-06 05:00] LABS: Calcium 8.3 mg/dL (8.6-10.8)
[2016-06-06 05:11] LABS: Hemoglobin 10.3 g/dL (11.5-15.4)
[2016-06-06] MEDS: *HR* Heparin 5,000 UNIT/ML VIAL SQ SCH ×3 (05:58→21:56)
[2016-06-06] MEDS: 0.9 % Sodium Chloride 1,000 ML IVC SCH (05:59)
[2016-06-06] MEDS: Aspirin 81 MG TAB.CHEW PO SCH (09:37)
--- NOTE | 2016-06-06 11:51 | Internal Med Progress Note ---
Date of Encounter: 06/06/16 Time of Encounter: 11:49 - Assessment and plan (1) Acute encephalopathy Current Visit: Yes Status: Acute Assessment and plan: Acute encephalopathy on top of underlying dementia Patient is improved and now at her baseline CT scan of the head without contrast showed moderate to severe periventricular subcortical white matter low attenuation which likely represent sequela of chronic small vessel ischemic disease and old left basal ganglia lacunar infarct Brain MRI is unremarkable for acute events Her encephalopathy is possibly metabolic from dehydration and JAYA She has made improvement PT/OT review noted. D/C recommendation is for SNF (2) Dehydration Current Visit: Yes Status: Acute Assessment and plan: Improved D/C IVF, encourage liberal fluid intake (3) Elevated troponin Current Visit: Yes Status: Acute Assessment and plan: Patient denies chest pain on admission EKG with ST depression in anterolateral leads, LVH and sinus tachycardia Troponin 0.06-0.05, possibly due to JAYA and demand ischemia from tachycardia Follow ECHO report Troponinemia has resolved (4) Leukocytosis Current Visit: Yes Status: Acute Assessment and plan: Resolved Possibly from dehydration and acute illness NO current source of infection, patient has no wounds, UA is unremarkable, patient has no fever, CXR is clear, will continue to monitor Qualifiers: Leukocytosis type: unspecified Qualified Code(s): D72.829 - Elevated white blood cell count, unspecified (5) Hypokalemia Current Visit: Yes Status: Acute Assessment and plan: Replaced, monitor (6) Abnormal EKG Current Visit: Yes Status: Acute Assessment and plan: ST depression in anterolateral leads insignificant, patint without chest pain no tele findings Keep on tele for now (7) JAYA (acute kidney injury) Current Visit: Yes Status: Acute Assessment and plan: Pre-renal, non-oliguric Possibility of post-renal component with urinary retention Cr has improved Started on tamsulosin Encourage liberal fluid intake Avoid nephrotoxins - Subjective Interval history: 76 Y/O F with PMH of HTN, CVA, Dementia Admitted for acute encephalopathy, JAYA, Leukocytosis Seen at bedside with family Today, she is more alert and able to make meaningful conversation She is still a little confused however as she doesn't remember how she got to the [place] She reports living by her sefl with her son there "all the time" Her family disagrees She denies new symptoms, JAYA has resolved, Brain MRI is negative - Constitutional Vitals: Temp Pulse Resp BP Pulse Ox 98.0 F 79 18 123/72 96 06/06/16 10:53 06/06/16 10:53 06/06/16 10:53 06/06/16 10:53 06/06/16 10:53 General appearance: Present: A&O X 2, pleasant, no acute distress. Absent: answers questions appropriately - Head Head exam: Present: atraumatic, normocephalic - Eye Eye exam: Present: PERRL, conjuntiva pink, sclera anicteric Pupils: Present: PERRL - Neck Neck exam general surgery: Present: supple, trachea midline. Absent: lymphadenopathy - Respiratory Respiratory exam: Present: CTAB. Absent: accessory muscle use, rales, rhonchi, wheezes - Cardiovascular Cardiovascular exam: Present: RRR, +S1, +S2. Absent: diastolic murmur, gallop, rubs, systolic murmur - GI/Abdominal GI/Abdominal exam: Present: normal bowel sounds, soft, no peritoneal signs. Absent: distended, tenderness - Extremities Exam Extremities exam: Present: warm, radial pulses palpable and symetrical. Absent : calf tenderness, cyanotic, pedal edema - Neurological Exam Neurological exam: Present: alert, CN II-XII intact, no focal deficits. Absent : oriented X3, pronater drift, facial droop, speech deficit - Skin Skin exam: Present: dry, intact Internal Medicine: Result - Labs CBC & Chem 7: 06/06/16 04:11 06/06/16 04:11 Labs: Short CBC 06/06/16 Range/Units 04:11 WBC 6.4 (4.3-11.1) K/mcL Hgb 10.3 L D (11.5-15.4) g/dL Hct 31.2 L (35.3-44.9) % Plt Count 229 (140-400) K/mcL Neutrophils # 2.9 (1.6-8.9) K/mcL BMP 06/06/16 04:11 Sodium 140 Potassium 3.1 L Chloride 113 H Carbon Dioxide 24 BUN 30 H Creatinine 0.67 D Glucose 104 H Calcium 8.3 L D Cardiac Enzymes 06/05/16 Range/Units 12:50 Troponin I 0.03 (0-0.03) ng/mL - ABG Interpretation ABG results: PT/INR, D-dimer PT 11.3 Seconds (9.4-12.1) 06/05/16 01:19 - Impressions Impressions Retroperitoneum Ultrasound 06/05/16 18:00 IMPRESSION: 1. Mild left hydronephrosis. 2. No right hydronephrosis. 3. Small residual postvoid bladder volume of 120 cc. D/ / Lane Shook MD / Lane Shook MD Interpreting Provider: Lane Shook MD Consult Discharge Plan - Plan Referrals: NO,PCP [Primary Care Provider] -
--- NOTE | 2016-06-06 11:55 | Neurology Progress Note ---
Date of Encounter: 06/06/16 Time of Encounter: 11:54 Assessment and Plan (1) Acute encephalopathy Current Visit: Yes Status: Acute Likely secondary to JAYA and other medical conditions. Rapidly improved and her medical conditions improve. MRI of brain showed no acute infarct or other intracranial abnormalities. No evidence of primary OIL DEVELOPER pathology. patient currently oriented and alert and shows no significant cognitive impairment. Will recommend no further testing from neurological perspective. will sign off at this time. Please call if any questions Subjective Principal diagnosis: altered mental status Interval history: Patient seen and examined. Feeling better and is eating in bed, comfortably. No discomforts reported. MRI of brain completed and showed no acute intracranial abnormality. No focal weakness. No cranial nerve deficits. Speech at baseline Objective - Constitutional Vitals: Temp Pulse Resp BP Pulse Ox 98.0 F 79 18 123/72 96 06/06/16 10:53 06/06/16 10:53 06/06/16 10:53 06/06/16 10:53 06/06/16 10:53 - Neurological Exam Sensorimotor examination: Present: intact Motor Examination: Present: grossly full strength in all extremities, full strength in all major muscle groups Motor examination - right side: 5/5: deltoids, biceps, triceps, wrist flexion, wrist extension, cotton bag sewer, hip flexors, tibialis Anterior, quadriceps, toe extension (EHL), plantarflexion Motor examination - left side: 5/5: deltoids, biceps, triceps, wrist flexion, wrist extension, hip flexors, cotton bag sewer, quadriceps, plantarflexion Sensation intact: Present: intact Reflex and gait examination: intact Mental Status Examination: Present: awake, alert, oriented to person, oriented to place, follows commands appropriately, answers questions appropriately, no agnosia, no aphasia, no aproxia Cranial nerve examination: Present: PERRL, EOMI, visual cuevas intact, sensory to face intact, mastication intact, no facial asymmetry is present, no dysarthria, hearing is intact symmetrically, soft palate elevates bilaterally upon phonation, tongue protrudes midline, no atrophy or facial fasiculations present Cerebellar examination: Present: no dysmetria, performs finger to nose and heel to romano symmetrically without ataxia, no truncal ataxia, no difficulty with rapid alternating movements Results - Laboratory Findings CBC and BMP: 06/06/16 04:11 06/06/16 04:11 Abnormal lab findings: Abnormal lab results RBC 3.57 M/mcL (3.82-4.97) L 06/06/16 04:11 Hgb 10.3 g/dL (11.5-15.4) L D 06/06/16 04:11 Hct 31.2 % (35.3-44.9) L 06/06/16 04:11 Potassium 3.1 mEq/L (3.5-4.5) L 06/06/16 04:11 Chloride 113 mEq/L (98-109) H 06/06/16 04:11 BUN 30 mg/dL (7-20) H 06/06/16 04:11 BUN/Creatinine Ratio 45 (6-26) H 06/06/16 04:11 Glucose 104 mg/dL (70-99) H 06/06/16 04:11 POC Glucose 140 (58-89) H 06/05/16 00:20 Uric Acid 10.0 mg/dL (2.6-6.0) H 06/05/16 06:31 Calcium 8.3 mg/dL (8.6-10.8) L D 06/06/16 04:11 Creatine Kinase 258 Units/L (29-168) H 06/05/16 01:19 Cholesterol 268 mg/dL (< 200) H 06/05/16 01:19 LDL Cholesterol, Calc 195 mg/dL (0-99) H 06/05/16 01:19 Cholesterol/HDL Ratio 6.2 (0-4.9) H 06/05/16 01:19 Urine Protein 30 mg/dL (Neg-Trace) H 06/05/16 02:36 Urine Ketones 80 mg/dL (Negative) H 06/05/16 02:36 Urine Bilirubin Moderate (Negative) H 06/05/16 02:36 Urine Microscopic RBC 3-5 per hpf (0-3) H 06/05/16 02:36 Ur Squamous Epith Cells Many per lpf (None-Few) H 06/05/16 02:36 Hyaline Casts Moderate per lpf (None-Few) H 06/05/16 02:36 Salicylates < 5.0 mg/dL (15-30) L 06/05/16 01:19 Acetaminophen < 1.0 mcg/mL (10-30) L 06/05/16 01:19 Consult Discharge Plan - Plan Referrals: NO,PCP [Primary Care Provider] -
--- NOTE | 2016-06-06 12:00 | ECHO - Doppler Report ---
Echocardiogram Name: Anna Arora Date of Study: 06/06/2016 Date: 1940 Ht: 64.0 in Medical Record#: [id number] Age: 76 Wt: 155.0 lb Gender: Female BSA: 1.76 Order #: [id number] Location: [facility] Room #: 2A12 Reading Physician: Bronson Crook MD, [facility] Health Management Consultant: Amna Taylor Ordering Physician: Mesfin Keller MD Primary Physician: None Indications: Abnormal EKG, Troponin leak Impressions: Normal LV systolic function, LVEF 65%. Mild left ventricular diastolic dysfunction. Normal right ventricular size and function. No significant valvular dysfunction. Unable to estimate RVSP due to lack of TR jet. Left Ventricular Wall Motion: Rest Echo Findings All wall segments showed normal motion. Findings: Study Quality * Suboptimal echo windows. ECG Findings * Normal sinus rhythm. Left Ventricle * Normal LV systolic function, LVEF 65%. * Normal LV chamber size and wall thickness. * Mild left ventricular diastolic dysfunction. Right Ventricle * Normal right ventricular size and function. Left Atrium * Normal left atrial size. Right Atrium * Normal right atrial size. Aorta * Normally sized aortic root. Pericardium * There is no pericardial effusion present. IVC * Normal IVC dimensions and inspiratory collapse. Aortic Valve * Aortic valve not well visualized. * No aortic stenosis. * No aortic regurgitation. Mitral Valve * Mild mitral annular calcification * No mitral stenosis. * Trace mitral regurgitation. Tricuspid Valve * Tricuspid valve not well visualized. * No tricuspid stenosis. * Trace tricuspid regurgitation. * Unable to estimate RVSP due to lack of TR jet. Pulmonic Valve * Pulmonic valve not well visualized. * No pulmonic stenosis. * No pulmonic regurgitation. Measurements: BP: 122/ 63 2D Normal Values RVIDd: 2.50 cm IVSd: 1.00 cm 0.6 - 1.0 cm LVIDd: 3.90 cm 3.7 - 5.6 cm LVPWd: 1.00 cm 0.6 - 1.1 cm LVIDs: 2.40 cm 1.5 - 3.6 cm AO: 3.00 cm < 4.0 cm LA volume: 32 Mitral Valve Peak E:.74 m/sec Peak A:.96 m/sec E/A Ratio:0.8 Updated by Bronson Crook MD, [facility] on 06/06/2016 11:54:38 AM electronically signed on 06/06/2016 11:55:09 AM with status of Final Wall Motion Case: 1=Normal, 2=Hypokinesis, 3=Akinesis, 4=Dyskinesis, 5=Aneurysmal, 6=Hyperkinetic, X=Not Visualized (Blank)=Missing
[2016-06-07 04:38] LABS: Basophils % 0.3 %; Eosinophils # 0.1 K/mcL (0.0-0.6); Eosinophils % 2.4 %; Hematocrit 27.9 % (35.3-44.9); Hemoglobin 9.4 g/dL (11.5-15.4); Immature Granulocytes % 0.2 % (0-4); Lymphocytes # 2.4 K/mcL (0.6-4.6); Lymphocytes % 40.2 %; Mean Corpuscular HGB Conc 33.7 g/dL (31.6-35.5); Mean Corpuscular Hemoglobin 29.3 pg (28.0-33.3); Mean Corpuscular Volume 86.9 fL (83.0-100.0); Mean Platelet Volume 10.5 fL (9.4-12.4); Monocytes # 0.6 K/mcL (0.0-1.3); Monocytes % 9.8 %; Neutrophils # 2.8 K/mcL (1.6-8.9); Platelet Count 192 K/mcL (140-400); Red Blood Count 3.21 M/mcL (3.82-4.97); Red Cell Distribution Width 13.2 % (11.5-14.5); Segmented Neutrophils % 47.1 %
[2016-06-07 04:58] LABS: BUN/Creatinine Ratio 26 (6-26); Calcium 8.3 mg/dL (8.6-10.8); Carbon Dioxide 26 mEq/L (19-29); Chloride 109 mEq/L (98-109); Glucose 98 mg/dL (70-99); Osmolality,Calculated 290 (280-300); Sodium 140 mEq/L (136-145); eGFR For African Americans > 60 (> 60); eGFR For Non-African Americans > 60 (> 60)
[2016-06-07 05:07] LABS: Blood Urea Nitrogen 14 mg/dL (7-20)
[2016-06-07] MEDS: *HR* Heparin 5,000 UNIT/ML VIAL SQ SCH ×3 (06:07→20:53)
[2016-06-07] MEDS: Aspirin 81 MG TAB.CHEW PO SCH (08:33)
--- NOTE | 2016-06-07 11:39 | Internal Med Progress Note ---
Date of Encounter: 06/07/16 Time of Encounter: 11:39 - Assessment and plan (1) Acute encephalopathy Current Visit: Yes Status: Resolved Assessment and plan: Acute encephalopathy on top of underlying dementia Patient is improved and now at her baseline CT scan of the head without contrast showed moderate to severe periventricular subcortical white matter low attenuation which likely represent sequela of chronic small vessel ischemic disease and old left basal ganglia lacunar infarct Brain MRI is unremarkable for acute events Her encephalopathy is possibly metabolic from dehydration and JAYA PT/OT review noted. D/C recommendation is for SN (2) Dehydration Current Visit: Yes Status: Resolved Assessment and plan: Improved D/C IVF, encourage liberal fluid intake (3) Elevated troponin Current Visit: Yes Status: Acute Assessment and plan: Patient denies chest pain on admission EKG with ST depression in anterolateral leads, LVH and sinus tachycardia Troponin 0.06-0.05, possibly due to JAYA and demand ischemia from tachycardia ECHO with no WMA, normal LV function Troponinemia has resolved (4) Leukocytosis Current Visit: Yes Status: Resolved Assessment and plan: Resolved Possibly from dehydration and acute illness NO current source of infection, patient has no wounds, UA is unremarkable, patient has no fever, CXR is clear, will continue to monitor Qualifiers: Leukocytosis type: unspecified Qualified Code(s): D72.829 - Elevated white blood cell count, unspecified (5) Hypokalemia Current Visit: Yes Status: Acute Assessment and plan: Replaced, monitor (6) Abnormal EKG Current Visit: Yes Status: Acute Assessment and plan: ST depression in anterolateral leads insignificant, patint without chest pain no tele findings Keep on tele for now (7) JAYA (acute kidney injury) Current Visit: Yes Status: Resolved Assessment and plan: Pre-renal, non-oliguric Possibility of post-renal component with urinary retention Cr has improved Started on tamsulosin Encourage liberal fluid intake Avoid nephrotoxins - Subjective Interval history: 76 Y/O F with PMH of HTN, CVA, Dementia Admitted for acute encephalopathy, JAYA, Leukocytosis Seen at bedside with family She denies new symptoms, JAYA has resolved, Brain MRI is negative, ECHO is unremarkable Awaiting placement Potassium is low, will replace - Constitutional Vitals: Temp Pulse Resp BP Pulse Ox 98.4 F 84 16 108/72 94 06/07/16 07:11 06/07/16 07:11 06/07/16 07:11 06/07/16 07:11 06/07/16 07:11 General appearance: Present: A&O X 2, pleasant, no acute distress, answers questions appropriately - Head Head exam: Present: atraumatic, normocephalic - Eye Eye exam: Present: PERRL, conjuntiva pink, sclera anicteric Pupils: Present: PERRL - Neck Neck exam general surgery: Present: supple, trachea midline. Absent: lymphadenopathy - Respiratory Respiratory exam: Present: CTAB. Absent: accessory muscle use, rales, rhonchi, wheezes - Cardiovascular Cardiovascular exam: Present: RRR, +S1, +S2. Absent: diastolic murmur, gallop, rubs, systolic murmur - GI/Abdominal GI/Abdominal exam: Present: normal bowel sounds, soft, no peritoneal signs. Absent: distended, tenderness - Extremities Exam Extremities exam: Present: warm, radial pulses palpable and symetrical. Absent : calf tenderness, cyanotic, pedal edema - Neurological Exam Neurological exam: Present: alert, CN II-XII intact, no focal deficits. Absent : oriented X3, pronater drift, facial droop, speech deficit - Skin Skin exam: Present: dry, intact Internal Medicine: Result - Labs CBC & Chem 7: 06/07/16 04:29 06/07/16 04:29 Labs: Short CBC 06/07/16 Range/Units 04:29 WBC 5.9 (4.3-11.1) K/mcL Hgb 9.4 L (11.5-15.4) g/dL Hct 27.9 L (35.3-44.9) % Plt Count 192 (140-400) K/mcL Neutrophils # 2.8 (1.6-8.9) K/mcL BMP 06/07/16 04:29 Sodium 140 Potassium 3.0 L Chloride 109 Carbon Dioxide 26 BUN 14 D Creatinine 0.54 L Glucose 98 Calcium 8.3 L - ABG Interpretation ABG results: PT/INR, D-dimer PT 11.3 Seconds (9.4-12.1) 06/05/16 01:19 Consult Discharge Plan - Plan Referrals: NO,PCP [Primary Care Provider] - (Patient need placement to ECF )
[2016-06-08 04:55] LABS: Basophils % 0.7 %; Eosinophils # 0.1 K/mcL (0.0-0.6); Hematocrit 27.7 % (35.3-44.9); Hemoglobin 9.2 g/dL (11.5-15.4); Immature Granulocytes % 0.5 % (0-4); Lymphocytes # 1.9 K/mcL (0.6-4.6); Mean Corpuscular HGB Conc 33.2 g/dL (31.6-35.5); Mean Corpuscular Hemoglobin 28.8 pg (28.0-33.3); Mean Corpuscular Volume 86.8 fL (83.0-100.0); Monocytes # 0.4 K/mcL (0.0-1.3); Monocytes % 9.7 %; Platelet Count 188 K/mcL (140-400); Red Blood Count 3.19 M/mcL (3.82-4.97); Red Cell Distribution Width 12.8 % (11.5-14.5); Segmented Neutrophils % 44.1 %
[2016-06-08] MEDS: *HR* Heparin 5,000 UNIT/ML VIAL SQ SCH (05:06)
[2016-06-08 05:09] LABS: BUN/Creatinine Ratio 18 (6-26); Blood Urea Nitrogen 10 mg/dL (7-20); Calcium 8.6 mg/dL (8.6-10.8); Carbon Dioxide 28 mEq/L (19-29); Chloride 106 mEq/L (98-109); Glucose 97 mg/dL (70-99); Osmolality,Calculated 293 (280-300); Potassium 3.3 mEq/L (3.5-4.5); Sodium 142 mEq/L (136-145); eGFR For African Americans > 60 (> 60); eGFR For Non-African Americans > 60 (> 60)
[2016-06-08 06:54] VITALS: BP 137/64
--- NOTE | 2016-06-08 07:54 | Physician Discharge Referral ---
ExtendedCare Referral Info Transfer To: [facility] Healthcare Provider in Charge: Krishna Provider in Charge after Transfer: PCP Institutional Level of Care: Skilled - Diagnosis (1) Acute encephalopathy Priority: Primary Status: Resolved (2) Dehydration Priority: Primary Status: Resolved (3) Elevated troponin Priority: Primary Status: Resolved (4) Leukocytosis Priority: Primary Status: Resolved (5) Hypokalemia Priority: Primary Status: Acute (6) Abnormal EKG Priority: Primary Status: Acute (7) JAYA (acute kidney injury) Priority: Primary Status: Resolved (8) Hypertension Priority: Secondary Status: Chronic Prognosis: Fair Aware of Diagnosis: Patient Aware of Prognosis: Patient - Transfer Medications Home Medications: Acetaminophen [Tylenol] 650 mg PO Q6HR PRN #0 tablet 06/08/16 [Rx] Aspirin 81 mg PO DAILY tab.chew 06/08/16 [Rx] Atorvastatin [Lipitor] 80 mg PO HS tablet 06/08/16 [Rx] Metoprolol [Lopressor] 12.5 mg PO BID tablet 06/08/16 [Rx] Potassium Chloride 20 meq PO DAILY tab.er.prt 06/08/16 [Rx] Tamsulosin [Flomax] 0.8 mg PO DAILY #0 capsule 06/08/16 [Rx] Allergies/Adverse Reactions: Allergies No Known Allergies Allergy (Verified 06/05/16 00:24) - Respiratory Orders Smoking Cessation: Smoking cessation has been advised. For more information, call the [place] Tobacco Quit Line at 1-946-SDYR-NOW. - Advance Directives Code Status: Full Code - Mobility Orders Ambulate - Rehabiliation Orders Rehab Potential: Fair - Diet Orders Cardiac CERTIFICATION: I certify that the transfer of the above named patient to an Extended Care Facility is necessary for the continuing treatment of the diagnosis listed. The above information is true and accurate reflection of patient's current condition. Confidential - Redisclosure prohibited without a patient's written consent.
--- NOTE | 2016-06-08 07:55 | Discharge Summary ---
Date of Encounter: 06/08/16 Time of Encounter: 07:55 - Discharge Diagnosis (1) Acute encephalopathy Priority: Primary Status: Resolved (2) Dehydration Priority: Primary Status: Resolved (3) Elevated troponin Priority: Primary Status: Resolved (4) Leukocytosis Priority: Primary Status: Resolved Qualifiers: Leukocytosis type: unspecified Qualified Code(s): D72.829 - Elevated white blood cell count, unspecified (5) Hypokalemia Priority: Primary Status: Acute (6) Abnormal EKG Priority: Primary Status: Acute (7) JAYA (acute kidney injury) Priority: Primary Status: Resolved (8) Hypertension Priority: Secondary Status: Chronic Qualifiers: Hypertension type: essential hypertension Qualified Code(s): I10 - Essential (primary) hypertension - Discharge Medications Home Medications: Acetaminophen [Tylenol] 650 mg PO Q6HR PRN #0 tablet 06/08/16 [Rx] Aspirin 81 mg PO DAILY tab.chew 06/08/16 [Rx] Atorvastatin [Lipitor] 80 mg PO HS tablet 06/08/16 [Rx] Metoprolol [Lopressor] 12.5 mg PO BID tablet 06/08/16 [Rx] Potassium Chloride 20 meq PO DAILY tab.er.prt 06/08/16 [Rx] Tamsulosin [Flomax] 0.8 mg PO DAILY #0 capsule 06/08/16 [Rx] Allergies/Adverse Reactions: Allergies No Known Allergies Allergy (Verified 06/05/16 00:24) Date of admission: 06/05/16 12:20 Primary care physician: PCP YOANDY Discharging clinician: Mesfin Keller Anticipated date of discharge: 06/08/16 - Patient Status Disposition: Transfer Inpatient Rehab Fac Condition: Fair Functional capacity at discharge: independent ambulation Overall status at discharge: patient is progressing back to baseline - Discharge Instructions Follow Up With: NO,PCP [Primary Care Provider] - (Patient need placement to ECF ) - Diet and Activity Activity: resume usual activities as tolerated Diet: low salt diet Interval History: See below Hospital course: Ms. Arora is a 76 year old female lived alone, with PMH of HTN and hx of CVA with minimal residual weakness, Dementia She was admitted after being found far away from home wandering, and with altered mental status She was managed for acute metabolic encephalopathy, JAYA, Elevated troponin Patient was disheveled and unkempt on arrival, alert but not oriented to time, place and person Work up revealed JAYA, Dehydration, Elevated troponin, Leukocytosis, and hypokalemia She was managed with IVF and further work up was sent Head CT and Brain MRI did not reveal any acute processes, UA and CXR were unremarkable,hence her leukocytosis was deemed to be due to dehydration. EKG showed anterolateral <1mm ST depression, however, ECHO did not reveal WMA and patient did not hae chest pain, troponin was flat and adynamic her JAYA resolved with fluids, however Renal USS revealed significant post-void volume with urinary retention, she has been started on Tamsulosin She is seen at bedside this morning, with no new complains Plan of care has been discussed with patient and family and patient is to be transferred for in-patient rehab today She is clinically stable She is discharged on her BP meds metoprolol and potassium replacement due to persistent hypokalemia - Time Spent with Patient Total time spent providing and/or coordinating discharge services: Greater than 30 minutes (35 minutes spent on chart review, patient encounter, med rec and prescrption and documentation) - Constitutional Vitals: Temp Pulse Resp BP Pulse Ox 98.3 F 76 16 137/64 98 06/08/16 06:54 06/08/16 06:54 06/08/16 06:54 06/08/16 06:54 06/08/16 06:54 General appearance: Present: A&O X 2, pleasant, no acute distress, answers questions appropriately - Head Head exam: Present: atraumatic, normocephalic - Eye Eye exam: Present: PERRL, conjuntiva pink, sclera anicteric Pupils: Present: PERRL - Neck Neck exam general surgery: Present: supple, trachea midline. Absent: lymphadenopathy - Respiratory Respiratory exam: Present: CTAB. Absent: accessory muscle use, rales, rhonchi, wheezes - Cardiovascular Cardiovascular exam: Present: RRR, +S1, +S2. Absent: diastolic murmur, gallop, rubs, systolic murmur - GI/Abdominal GI/Abdominal exam: Present: normal bowel sounds, soft, no peritoneal signs. Absent: distended, tenderness - Extremities Exam Extremities exam: Present: warm, radial pulses palpable and symetrical. Absent : calf tenderness, cyanotic, pedal edema - Neurological Exam Neurological exam: Present: alert, CN II-XII intact, no focal deficits. Absent : oriented X3, pronater drift, facial droop, speech deficit - Skin Skin exam: Present: dry, intact
[2016-06-08] MEDS: Aspirin 81 MG TAB.CHEW PO SCH (09:30)
== END 2016-06-08 10:50 | DRG 682 ==
LOC: 2ANU 00:13 → EMEROO 00:13 → 2ANU 05:49
PROVIDERS: ADMIT Internal Medicine; ATTEND Internal Medicine